=== PATIENT | female | born 1995 | race Caucasian/White ===

== ENCOUNTER 2020-11-05 19:04 | Emergency (ER) | payer OTHER ==
[~2020-11-05] VITALS: Ht 167.6 cm; Wt 59.0 kg
[2020-11-05 19:07] VITALS: BP 157/101
== END 2020-11-05 19:56 | disposition home or self-care (01) ==
LOC: ER 19:04
DX: S61.531A Puncture wound without foreign body of right wrist, initial encounter (principal); J45.909 Unspecified asthma, uncomplicated; F41.9 Anxiety disorder, unspecified; F32.9 Major depressive disorder, single episode, unspecified; F90.9 Attention-deficit hyperactivity disorder, unspecified type; Z88.1 Allergy status to other antibiotic agents; Z88.5 Allergy status to narcotic agent; W27.3XXA Contact with needle (sewing), initial encounter; Y99.8 Other external cause status; Y93.89 Activity, other specified; Y92.89 Other specified places as the place of occurrence of the external cause

== ENCOUNTER 2020-11-14 19:47 | Emergency (ER) | payer BC, OTHER ==
[~2020-11-14] VITALS: Ht 167.6 cm; Wt 61.2 kg
--- NOTE | ~2020-11-14 | EMS ---
[address] [address] EMS Patient Care Report Name: LORETA AGUIRRE Room #: DEP BEATRIS Dickey#: [id number] Admission: 11/14/20 Attend Phys: Discharge: 11/14/20 Date of : [birth year] Report #: [id number] THIS REPORT FOR: //name// Report Transmitted: 11/15/2020 14:12 EMS Care Summary [place], [place]/[facility] Incident [id number] @ 11/14/2020 19:21 Incident Location [address] [place] [address] Patient LORETA AGUIRRE Female, 25 Years 1995 Patient Address [address] [place] [id number] Patient History Asthma,Attention Deficit Hyperactivity Disorder (ADHD),Anxiety, Patient Allergies Morphine,Cephalexin, Patient Medications Lexapro, Adderall, Omeprazole, Flovent, Chief Complaint ANXIETY ATTACK Disposition Transported No Lights/[place] Dispatch Reason Chest Pain (Non-Traumatic) Transported To [facility] Narrative M1 WAS DISPATCHED TO [facility] ON A CHEST PAIN. ON ARRIVAL EMS FINDS PT LYING SUPINE INSIDE THE [place]ICE ST[place]. PT IS ON MAGISTRATE. PT IS ALERT AND ORIENTED GCS OF 15. PT STATES SHE IS HAVING TINGLING IN HER HANDS AND FACE THAT [address] [address] EMS Patient Care Report Name: LORETA AGUIRRE Room #: DEP ER Noble#: [id number] Admission: 11/14/20 Attend Phys: Discharge: 11/14/20 Date of : [birth year] Report #: [id number] MIGHT BE A RESULT OF HYPERVENTILATING FOLLOWING A PANIC ATTACK. PT HAS A HISTORY OF ANXIETY BUT HAS NOT HAD A PANIC ATTACK IN SEVERAL YEARS. PT REQUEST TRANSPORT TO NEAREST FACILITY FOR EVALUATION. VITALS MONITORED EN ROUTE WITH NO CHANGES IN PT CONDITION. Initial Vitals @19:33P: 94,SpO2: 81, @19:33P: 90,BP: 136/85,SpO2: 82, @19:38P: 80,R: 16,BP: 136/85,Pain: 0/10,GCS: 15,SpO2: 100,Revised Trauma: 12, Assessments @19:33MENTAL:Person Oriented,Time Oriented,Event Oriented,Place Oriented,SKIN:HEENT:Head/Face: No Abnormalities,Neck/Airway: No Abnormalities,LUNG SOUNDS:General: No Abnormalities,ABDOMEN:General: No Abnormalities,PELVIS//GI:No Abnormalities,EXTREMITIES:Left Arm: No Abnormalities,Right Arm: No Abnormalities,Left Leg: No Abnormalities,Right Leg: No Abnormalities,PULSE:NEURO:No Abnormalities, Impression Anxiety reaction/Emotional upset Procedures @19:33ALS AssessmentResponse: UnchangedSucceeded Timeline 19:20,Call Received 19:20,Dispatch Notified 19:21,Dispatched 19:22,En Route 19:32,On Scene 19:33,At Patient 19:33,ALS Assessment,Response: UnchangedSucceeded, 19:33,BP: / M,PULSE: 94,RR: R,SPO2: 81 Ox,ETCO2: ,BG: ,PAIN: ,GCS: , 19:33,BP: 136/85 M,PULSE: 90,RR: R,SPO2: 82 Ox,ETCO2: ,BG: ,PAIN: ,GCS: , 19:36,Depart Scene 19:38,BP: 136/85 M,PULSE: 80,RR: 16 R,SPO2: 100 Ox,ETCO2: ,BG: ,PAIN: 0,GCS: 15, 19:46,At Destination 19:56,Call Closed Disclaimer v1.1 Copyright 2020 [employer] This EMS Care Summary contains data elements from the applicable legal record (which may be displayed differently). It is designed to provide pertinent information for the following purposes: continuity of care, clinical quality, and state data reporting. The complete legal record is available to ED staff [address] [address] EMS Patient Care Report Name: LORETA AGUIRRE Room #: DEP ER [place]#: [id number] Admission: 11/14/20 Attend Phys: Discharge: 11/14/20 Date of : [birth year] Report #: [id number] and administrators of the receiving hospital in [facility]'s Patient Tracker. All data is provided "as is."
[2020-11-14 20:27] LABS: ABSOLUTE NEUTROPHILS 4.1 thou/uL (1.4-8.2); BASOPHILS 0.5 % (0.0-2.0); EOSINOPHILS 0.3 % (0.0-3.0); HEMATOCRIT 40.5 % (37.0-47.0); HEMOGLOBIN 13.8 gm/dL (12.0-15.0); LYMPHOCYTES 23.6 % (24.0-44.0); MCH 30.6 pg (26.0-34.0); MCV 90.1 fL (80.0-100.0); MONOCYTES 5.5 % (1.0-8.0); PLATELET COUNT 270 thou/uL (150-400); POLYS 70.1 % (36.0-66.0); RDW 13.8 % (10.5-14.5); WBC 5.9 thou/uL (4.0-11.0)
[2020-11-14 20:28] LABS: URINE BILIRUBIN NEGATIVE (Negative); URINE BLOOD NEGATIVE (Negative); URINE CLARITY CLEAR; URINE COLOR OTHER; URINE GLUCOSE-RANDOM* NEGATIVE (Negative); URINE KETONES NEGATIVE (Negative); URINE LEUKOCYTES-REFLEX TRACE (Negative); URINE NITRITE-REFLEX NEGATIVE (Negative); URINE PROTEIN (DIPSTICK) NEGATIVE (Negative); URINE UROBILINOGEN 0.2 E.U./dl (0.2-1.0)
[2020-11-14] MEDS ORDERED: LEXAPRO 10 MG T10 M2 PO (20:32)
[2020-11-14] MEDS ORDERED: ADDERALL 10 MG10 MG PO (20:33)
[2020-11-14] MEDS ORDERED: ZAFEMY 150-351 EACH TOP (20:33)
[2020-11-14] MEDS ORDERED: OMEPRAZOLE40 MG PO (20:33)
[2020-11-14 20:38] LABS: AMP/METHAMP Negative (Negative); BARBITURATES Negative (Negative); BENZODIAZEPINES Negative (Negative); COCAINE Negative (Negative); METHADONE Negative (Negative); OPIATES Negative (Negative); PCP Negative (Negative)
[2020-11-14 21:28] LABS: ALBUMIN 3.1 g/dL (3.4-5.0); ANION GAP 14 mmol/L (7-16); BUN 7 mg/dL (7-18); CALCIUM 7.1 mg/dL (8.5-10.1); CHLORIDE 111 mmol/L (98-107); CO2 21 mmol/L (21-32); CREATININE 0.8 mg/dL (0.6-1.0); DIRECT BILIRUBIN < 0.1 mg/dL (<0.1-0.2); GLUCOSE 87 mg/dL (74-106); LIPASE 95 U/L (73-393); SGOT 15 U/L (15-37); SGPT 21 U/L (30-65); SODIUM 146 mmol/L (136-145); TOTAL BILIRUBIN 0.1 mg/dL (0.2-1.0); TOTAL PROTEIN 5.5 g/dL (6.4-8.2); TROPONIN-I <0.06 ng/mL (<0.06)
[2020-11-14] MEDS ORDERED: KLOR-CON M2020 MEQ PO (21:44)
[2020-11-14] MEDS ORDERED: ATIVAN1 M1 PO (21:50)
[2020-11-14 22:10] VITALS: BP 127/61
--- NOTE | 2020-11-15 07:38 | EKG ---
[address] [address] ELECTROCARDIOGRAM REPORT Name: LORETA AGUIRRE [id number] Admission: 11/14/20 Attend Phys: Discharge: 11/14/20 Date of : [birth year] Report #: [id number] [facility] ED Test Date: 2020-11-14 Test Time: 19:52:53 Pat Name: LORETA AGUIRRE Department: Room: Gender: F Electronic [employer] Specialist: [place] : 1995 Requested By: Morris Olivares Order Number: [id number] MD: Christopher Bojorquez Measurements Intervals [place] Rate: 68 P: 66 VA: 139 QRS: 71 QRSD: 83 T: 44 QT: 399 QTc: 425 Interpretive Statements Sinus rhythm No previous ECG available for comparison Electronically Signed On 11-15-2020 7:37:46 CDT by Christopher Bojorquez [email or web address] <ELECTRONICALLY SIGNED> By: Christopher Bojorquez MD, [facility] 11/15/2037 51 51 Christopher Bojorquez MD, FACC /EPI
== END 2020-11-14 22:13 | disposition home or self-care (01) ==
LOC: ER 19:47
PROVIDERS: Emergency Medicine
DX: F41.1 Generalized anxiety disorder (principal); F45.8 Other somatoform disorders; E83.51 Hypocalcemia; E87.6 Hypokalemia; J45.909 Unspecified asthma, uncomplicated; F32.9 Major depressive disorder, single episode, unspecified; F90.9 Attention-deficit hyperactivity disorder, unspecified type; Z79.899 Other long term (current) drug therapy; Z88.6 Allergy status to analgesic agent; Z88.1 Allergy status to other antibiotic agents